=== PATIENT | female | born 1980 | race African-American/Black ===

== ENCOUNTER 2017-02-22 18:24 | Emergency (ER) | payer BC, OTHER ==
[2017-02-22 18:38] VITALS: BP 123/76; PULSE 85; TEMP 97.3; BMI 32.5
--- NOTE | 2017-02-22 19:06 | PDOC ---
History of Present Illness - General Chief Complaint: Back Pain Stated Complaint: BACK PAIN Time Seen by Provider: 02/22/17 19:05 - History of Present Illness Initial Comments: 02/22/17 19:56 36 year old female without any significant PMH presenting with mid lower back tightness that she describes a spasm. She denies any trauma or inciting event, but claims that she was simply walking over to her chair when she felt a strange sensation in the center of her back. She then felt a tightness and had difficulty walking. She had a similar experience last year for which she was treated in the emergency department with Morphine and a muscle relaxer which she does not recall the name of and discharged with pain control and more muscle relaxers. Her pain subsided at that time after a week. She did not have any inciting event at that time as well. 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 SHe does not have history of kidney stones. Past History - Past Medical History Allergies/Adverse Reactions: Allergies Allergy/AdvReac Type Severity Reaction Status Date / Time meperidine HCl [From Demerol] Allergy Unknown Verified 02/22/17 18:31 Home Medications: Ambulatory Orders Methocarbamol 500 mg PO TID PRN #30 tablet 02/23/17 Oxycodone HCl/Acetaminophen [Percocet 5-325 mg Tablet] 1 tab PO Q8H PRN #20 tablet MDD 3 tablets 02/23/17 Other medical history: denies - Immunization History Immunization Up to Date: Yes - Psycho/Social/Smoking Cessation Hx Anxiety: No Suicidal Ideation: No Smoking History: Never smoked Have you smoked in the past 12 months: No Information on smoking cessation initiated: No Hx Alcohol Use: No Drug/Substance Use Hx: No Review of Systems - Review of Systems Constitutional: No: Chills, Diaphoresis, Fever, Loss of Appetite, Unexplained wgt Loss HEENTM: No: Eye Pain, Blurred Vision, Double Vision Respiratory: No: Cough, Shortness of Breath, SOB with Exertion Cardiac (ROS): Yes: Irregular Heart Rate. No: Chest Pain, Edema ABD/GI: No: Abdominal Distended, Diarrhea, Nausea : No: Burning, Dysuria, Discharge Musculoskeletal: Yes: Back Pain, Muscle Pain. No: Joint Swelling Neurological: No: Headache, Numbness *Physical Exam - Vital Signs Last Vital Signs Temp Pulse Resp BP Pulse Ox 97.3 F L 85 22 123/76 95 02/22/17 18:31 02/22/17 18:31 02/22/17 18:31 02/22/17 18:31 02/22/17 18:31 - Physical Exam General Appearance: Yes: Nourished, Appropriately Dressed, Apparent Distress, Mild Distress HEENT: positive: KAI, Normal ENT Inspection, Normal Voice Neck: positive: Tender, Normal Thyroid. negative: Trachea midline Respiratory/Chest: positive: Lungs Clear, Normal Breath Sounds. negative: Chest Tender, Respiratory Distress, Accessory Muscle Use Cardiovascular: positive: Regular Rhythm, Regular Rate, S1, S2. negative: Edema , Murmur, Diastolic Murmur, Systolic Murmur Gastrointestinal/Abdominal: positive: Normal Bowel Sounds, Flat, Soft. negative : Tender, Organomegaly Musculoskeletal: positive: Vertebral Tenderness (tenderness over her L3-L4 area with some light paraspinal ). negative: Other Extremity: positive: Normal Capillary Refill, Normal Inspection Integumentary: positive: Normal Color Neurologic: positive: Fully Oriented, Alert, Normal Mood/Affect Medical Decision Making - Medical Decision Making 36 year old healthy female presenting with mid lower back pain that she claims is similar to a back spasm she had last year. Denies trauma or inciting event. Will get serum preg then administer Robaxin and repeat exam because of suspected vertebral tenderness. 02/22/17 20:41 02/22/17 23:16 Pain resolved after morphine and Robaxin administration. Will give a dose of Percocet and measure response. Still has some slight sacral tenderness but low suspicion for bony pathology. Patient does need an MRI at some point for disk evaluation given. 02/23/17 00:24 Pain much better after 5 of percocet. Will send home with one week of Robaxin and percocet for presumed muscular spasm and instructions to follow up with PCP for MRI. *DC/Admit/Observation/Transfer Diagnosis at time of Disposition: Spasm of back muscles - Discharge Dispostion Disposition: HOME Condition at time of disposition: Improved Admit: No - Prescriptions Prescriptions: Methocarbamol 500 mg PO TID PRN #30 tablet PRN Reason: Back Pain Oxycodone HCl/Acetaminophen [Percocet 5-325 mg Tablet] 1 tab PO Q8H PRN #20 tablet MDD 3 tablets PRN Reason: Back Pain - Referrals Referrals: Chi Rachel MD [Staff Physician] - - Patient Instructions Printed Discharge Instructions: DI for Back Spasm Additional Instructions: You were seen for back pain which we believe is consistent with your history of back spasm. We have prescribed you a muscle relaxer called methocarbamol which you should try first up to three times per day. If this isn't helping then you can try percocet on top of that. Please follow up with your primary care physician to get an MRI of your spine because we believe you may some form of disk disease as well. - Attestations Physician Attestion: I, Dr. Beka Ho, attest that this document has been prepared under my direction and personally reviewed by me in its entirety. I further attest, that it accurately reflects all work, treatment, procedures and medical decision -making performed by me. 02/23/17 00:44
--- NOTE | 2017-02-22 19:10 | PDOC ---
Attending Attestation - Resident Resident Name: Beka Ho - ED Attending Attestation I have performed the following: I have examined & evaluated the patient, The case was reviewed & discussed with the resident, I agree w/resident's findings & plan, Exceptions are as noted - HPI HPI: 36 yo F no significant PMH presents with low back pain x1 day. 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 She denies any trauma, no recent MVA. She has not lifted anything out of the ordinary today, although her job involves a lot of bending and lifting. Denies weakness, numbness. She states that it is difficult to move her legs due to pain. No incontinence, retention. - Physicial Exam PE: GENERAL: Awake, alert, and fully oriented. Appears uncomfortable. HEAD: No signs of trauma EYES: PERRLA, EOMI, sclera anicteric, conjunctiva clear ENT: Auricles normal inspection, hearing grossly normal, nares patent, oropharynx clear without exudates. Moist mucosa NECK: Normal ROM, supple, no lymphadenopathy, JVD, or masses LUNGS: Breath sounds equal, clear to auscultation bilaterally. No wheezes, and no crackles HEART: Regular rate and rhythm, normal S1 and S2, no murmurs, rubs or gallops ABDOMEN: Soft, nontender, normoactive bowel sounds. No guarding, no rebound. No masses EXTREMITIES: Normal range of motion, no edema. No clubbing or cyanosis. No cords, erythema, or tenderness NEUROLOGICAL: Cranial nerves II through XII grossly intact. Normal speech, normal gait SKIN: Warm, Dry, normal turgor, no rashes or lesions noted. SPINE: +Midline tenderness over the sacrum. - Medical Decision Making Pt with abrupt onset low back pain, prior similar symptoms once before. No neuro deficits on exam. Likelihood of a fx of sacrum in the absence of trauma is extremely low. Symptoms are worse with moving her back or sitting for too long, likely musculoskeletal. Will treat with muscle relaxers and pain meds. Likely DC home.
[2017-02-22] MEDS ORDERED: IBUPROFEN 600 MG TABLET (FP) PO ONE ×2 (21:16→22:08)
[2017-02-22] MEDS ORDERED: METHOCARBAMOL 500 MG TABLET PO ONE (21:16)
[2017-02-22] MEDS ORDERED: METHOCARBAMOL 500 MG TABLET ONE (22:08)
[2017-02-22] MEDS ORDERED: OXYCODONE/APAP 5/325MG COMBO TABLET PO ONE (22:57)
[2017-02-22] MEDS ORDERED: OXYCODONE/APAP 5/325MG COMBO TABLET ONE (23:13)
== END 2017-02-23 00:49 | disposition home or self-care (01) ==
LOC: JER 18:24
DX: M62.830 Muscle spasm of back (principal); Y93.01 Activity, walking, marching and hiking
CPT/HCPCS: 84703; 99281-25

== ENCOUNTER 2017-08-02 21:44 | Emergency (ER) | payer OTHER ==
[2017-08-02 21:49] VITALS: BP 131/89; PULSE 93; BMI 34.4
[2017-08-02] MEDS ORDERED: KETOROLAC TROMETHAMINE 60 MG/2 ML VIAL IM ONE (22:39)
--- NOTE | 2017-08-02 22:39 | PDOC ---
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 Pt states she was lifting the patient over the snow when she felt an acute left sided LBP. Patient denies any neck pain, chest pain, shortness of breath, abdominal pains, bladder or bowel dysfunction, extremity numbness or tingling sensation. Occurred: reports: other (2000hrs tonight) Past History - Past Medical History Allergies/Adverse Reactions: Allergies Allergy/AdvReac Type Severity Reaction Status Date / Time meperidine HCl [From Demerol] Allergy Unknown Verified 08/02/17 21:47 Home Medications: Ambulatory Orders Methocarbamol 500 mg PO TID PRN #30 tablet 02/23/17 Oxycodone HCl/Acetaminophen [Percocet 5-325 mg Tablet] 1 tab PO Q8H PRN #20 tablet MDD 3 tablets 02/23/17 Cyclobenzaprine HCl [Flexeril 10 mg] 10 mg PO BID PRN #12 tablet 08/02/17 COPD: No Other medical history: arthritis - Immunization History Immunization Up to Date: Yes - Suicide/Smoking/Psychosocial Hx Smoking History: Never smoked Have you smoked in the past 12 months: No Hx Alcohol Use: No Drug/Substance Use Hx: No Review of Systems - Review of Systems Able to Perform ROS?: Yes Comments:: 08/02/17 23:38 CONSTITUTIONAL: Absent: fever, chills, diaphoresis, generalized weakness, malaise, loss of appetite MUSCULOSKELETAL: +left sided back pain(lumbar) Absent: myalgia, arthralgia, joint swelling SKIN: Absent: rash, itching, pallor HEMATOLOGIC/IMMUNOLOGIC: Absent: easy bleeding, easy bruising, lymphadenopathy, frequent infections Is the patient limited Wolof proficient: No *Physical Exam - Vital Signs Last Vital Signs Temp Pulse Resp BP Pulse Ox 93 H 18 131/89 98 08/02/17 21:47 08/02/17 21:47 08/02/17 21:47 08/02/17 21:47 - Physical Exam Comments: 08/02/17 23:38 GENERAL: Well developed, well nourished. Awake and alert. No acute distress. CARDIOVASCULAR: Regular rate and rhythm. No murmurs, rubs, or gallops. Distal pulses are 2+ and symmetric. PULMONARY: No evidence of respiratory distress. Lungs clear to auscultation bilaterally. No wheezing, rales or rhonchi. ABDOMINAL: Soft. Non-tender. Non-distended. No rebound or guarding. No organomegaly. Normoactive bowel sounds. MUSCULOSKELETAL Normal range of motion at all joints. No bony deformities or tenderness. No CVA tenderness. EXTREMITIES: No cyanosis. No clubbing. No edema. No calf tenderness. SKIN: Warm and dry. Normal capillary refill. No rashes. No jaundice. NEUROLOGICAL: Alert, awake, appropriate. Cranial nerves 2-12 intact. No deficits to light touch and temperature in face, upper extremities and lower extremities. No motor deficits in the in face, upper extremities and lower extremities. Normoreflexic in the upper and lower extremities. Normal speech. Toes are down- going bilaterally. Gait is normal without ataxia. 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 Patient states her patient was not heavy but due to the maneuver of lifting the patient on the stretcher over the snow caused acute pain because she did not list with her knees but with her back. Patient was given Toradol 60 mg IM while in the emergency department. Patient was reassessed and is pain- free. Patient was given a work note for 2 days. Patient had no bladder or bowel dysfunction. Patient will be discharged to follow up with Ortho. *DC/Admit/Observation/Transfer Diagnosis at time of Disposition: Acute lumbar myofascial strain Qualifiers: Encounter type: initial encounter Qualified Code(s): S39.012A - Strain of muscle, fascia and tendon of lower back, initial encounter - Discharge Dispostion Disposition: HOME Condition at time of disposition: Stable Admit: No - Prescriptions Prescriptions: Cyclobenzaprine HCl [Flexeril 10 mg] 10 mg PO BID PRN #12 tablet PRN Reason: Back Pain - Referrals Referrals: Wei Hayes MD [Staff Physician] - - Patient Instructions Printed Discharge Instructions: DI for Low Back Pain Additional Instructions: Ice; 20 mins on alternating with 20 mins off for 48 hours while awake. Rest Elevate Follow up with your orthopedic surgeon or the one listed on the discharge form. Return to the ER for severe/persistent/worsening symptoms, extremity numbness/ tingling sensation. - Post Discharge Activity Forms/Work/School Notes: Back to Work
[2017-08-02] MEDS ORDERED: KETOROLAC TROMETHAMINE 60 MG/2 ML VIAL ONE (23:06)
== END 2017-08-03 00:14 | disposition home or self-care (01) ==
LOC: JER 21:44 → JERFT 21:44
DX: S39.012A Strain of muscle, fascia and tendon of lower back, initial encounter (principal); X50.0XXA Overexertion from strenuous movement or load, initial encounter; X50.9XXA Other and unspecified overexertion or strenuous movements or postures, initial encounter; Y93.F2 Activity, caregiving, lifting; Y92.488 Other paved roadways as the place of occurrence of the external cause; Y99.0 Civilian activity done for income or pay
CPT/HCPCS: 99281-25